=== PATIENT | female | born 1995 | race Caucasian/White ===

== ENCOUNTER 2021-10-30 15:08 | Outpatient (CLI) | payer MEDICAID, SELFPAY ==
[2021-10-30 22:55] LABS: HIV 1/2/P24 Combo Screen* Negative (Negative)
[2021-10-30 22:57] LABS: Chlamydia DNA Amplified* NOT DETECTED (No Detected); GC DNA Amplified* NOT DETECTED (No Detected)
[2021-10-30 22:58] LABS: Hepatitis B Surface Antigen* Negative (Negative); Hepatitis C Virus Antibody* Negative (Negative)
[2021-10-30 23:01] LABS: Hepatitis B Surface Antibody* Positive (Negative)
[2021-11-01 14:15] LABS: Rapid Plasma Reagin (RPR) Non Reactive (Non Reactive)
== END 2021-10-30 15:09 | disposition home or self-care (01) ==
PROVIDERS: PCP Physician Assistant Medical; Visit Provider Physician Assistant Medical
DX: R87.612 Low grade squamous intraepithelial lesion on cytologic smear of cervix (LGSIL) (principal); F41.9 Anxiety disorder, unspecified; F32.9 Major depressive disorder, single episode, unspecified; Z11.3 Encounter for screening for infections with a predominantly sexual mode of transmission
CPT/HCPCS: 86592; 86703; 86706; 86803; 87340; 87491; 87591

== ENCOUNTER 2022-08-19 13:13 | Outpatient (CLI) | payer MEDICAID, SELFPAY | END 2022-08-19 13:14 | disposition home or self-care (01) | PROVIDERS: PCP Physician Assistant Medical; Visit Provider Registered Nurse | DX: R19.7 Diarrhea, unspecified (principal); R79.89 Other specified abnormal findings of blood chemistry; R10.9 Unspecified abdominal pain; R11.0 Nausea | CPT/HCPCS: 80076; 83690; 87086 ==

== ENCOUNTER 2022-08-20 13:04 | Outpatient (CLI) | payer MEDICAID, SELFPAY | END 2022-08-20 13:05 | disposition home or self-care (01) | LOC: NFLDREF 08-21 07:24 | PROVIDERS: PCP Physician Assistant Medical; Referring Provider Physician Assistant Medical; Visit Provider Physician Assistant Medical | DX: R19.7 Diarrhea, unspecified (principal) | CPT/HCPCS: 87493; 87505 ==

== ENCOUNTER 2023-09-28 12:50 | Outpatient (CLI) | payer OTHER, SELFPAY | END 2023-09-28 12:51 | disposition home or self-care (01) | PROVIDERS: PCP Physician Assistant Medical; Visit Provider Physician Assistant Medical | DX: S22.32XA Fracture of one rib, left side, initial encounter for closed fracture (principal); R79.89 Other specified abnormal findings of blood chemistry | CPT/HCPCS: 82306; 82310; 83970; 84443 ==